=== PATIENT | male | born 2000 | race Caucasian/White ===

== ENCOUNTER 2023-04-18 15:55 | Emergency (ER) | payer BC ==
[2023-04-18] MEDS: LORazepam 1 MG TAB PO STA ×2 (16:49→16:51)
--- NOTE | 2023-04-18 16:49 | ED ---
General Adult HPI - General Chief complaint: Nausea/Vomiting/Diarrhea Stated complaint: Dizziness,nausea Time Seen by Provider: 04/18/23 16:11 Source: patient, RN notes reviewed Mode of arrival: EMS Limitations: no limitations - History of Present Illness Initial comments: 23-year-old male presents to the emergency department chief complaint of nausea and anxiety 2 hours. He states that he started feeling shaky. He states that he has felt like this in the past and has had to cover his head with a blanket to feel relief. Denies fever, chills, chest pain, shortness of breath. Denies SI, HI, hallucinations. - Related Data Home Medications Medication Instructions Recorded Confirmed No Known Home Medications 04/18/23 04/18/23 Allergies Allergy/AdvReac Type Severity Reaction Status Date / Time amoxicillin Allergy Rash/Hives Verified 04/18/23 16:08 Review of Systems ROS Statement: Those systems with pertinent positive or pertinent negative responses have been documented in the HPI. ROS Other: All systems not noted in ROS Statement are negative. Past Medical History Past Medical History: No Reported History History of Any Multi-Drug Resistant Organisms: None Reported Past Surgical History: No Surgical Hx Reported Past Psychological History: No Psychological Hx Reported Smoking Status: Current every day smoker Past Alcohol Use History: Daily Past Drug Use History: Marijuana General Exam Limitations: no limitations General appearance: alert, in no apparent distress, anxious Head exam: Present: atraumatic, normocephalic, normal inspection Eye exam: Present: normal appearance, PERRL, EOMI. Absent: scleral icterus, conjunctival injection, periorbital swelling ENT exam: Present: normal exam, mucous membranes moist Neck exam: Present: normal inspection. Absent: tenderness, meningismus, lymphadenopathy Respiratory exam: Present: normal lung sounds bilaterally. Absent: respiratory distress, wheezes, rales, rhonchi, stridor Cardiovascular Exam: Present: regular rate, normal rhythm, normal heart sounds. Absent: systolic murmur, diastolic murmur, rubs, gallop, clicks GI/Abdominal exam: Present: soft, normal bowel sounds. Absent: distended, tenderness, guarding, rebound, rigid Extremities exam: Present: normal inspection, full ROM, normal capillary refill. Absent: tenderness, pedal edema, joint swelling, calf tenderness Back exam: Present: normal inspection Neurological exam: Present: alert, oriented X3, CN II-XII intact Psychiatric exam: Present: normal affect, normal mood Skin exam: Present: warm, dry, intact, normal color. Absent: rash Course Vital Signs 04/18/23 04/18/23 16:05 18:34 Temperature 98.0 F 97.6 F Pulse Rate 73 83 Respiratory 18 16 Rate Blood Pressure 142/96 171/97 O2 Sat by Pulse 99 100 Oximetry Medical Decision Making - Medical Decision Making Was pt. sent in by a medical professional or institution (, [facility], [employer], urgent care, hospital, or fpc...) When possible be specific @ -No Did you speak to anyone other than the patient for history (EMS, parent, family, police, friend...)? What history was obtained from this source @ -No Did you review nursing and triage notes (agree or disagree)? Why? @ -I reviewed and agree with nursing and triage notes Were old charts reviewed (outside hosp., previous admission, EMS record, old EKG, old radiological studies, urgent care reports/EKG's, fpc records)? Report findings @ -No old charts were reviewed Differential Diagnosis (chest pain, altered mental status, abdominal pain women, abdominal pain men, vaginal bleeding, weakness, fever, dyspnea, syncope, headache, dizziness, GI bleed, back pain, seizure, CVA, palpatations, mental health, musculoskeletal)? @ -not applicable EKG interpreted by me (3pts min.). @ -EKG at 1623 showed sinus tachycardia, rate 100, ME 154, QRS 94 X-rays interpreted by me (1pt min.). @ -None done CT interpreted by me (1pt min.). @ -None done U/S interpreted by me (1pt. min.). @ -None done What testing was considered but not performed or refused? (CT, X-rays, U/S, labs)? Why? @ -None What meds were considered but not given or refused? Why? @ -None Did you discuss the management of the patient with other professionals (professionals i.e. [facility] Abreu, [employer], lab, RT, psych nurse, social sciences research scientist, parts consultant, teacher, affirmative action officer, community case manager)? Give summary @ -No Was smoking cessation discussed for >3mins.? @ -No Was critical care preformed (if so, how long)? @ -No Were there social determinants of health that impacted care today? How? (Homelessness, low income, unemployed, alcoholism, drug addiction, transportation, low edu. Level, literacy, decrease access to med. care, usp, rehab)? @ -No Was there de-escalation of care discussed even if they declined (Discuss DNR or withdrawal of care, Hospice)? DNR status @ -No What co-morbidities impacted this encounter? (DM, HTN, Smoking, COPD, CAD, Cancer, CVA, ARF, Chemo, Hep., AIDS, mental health diagnosis, sleep apnea, morbid obesity)? @ -None Was patient admitted / discharged? Hospital course, mention meds given and route, prescriptions, significant lab abnormalities, going to OR and other pertinent info. @ -Discharged. Patient presented to the emergency department for chief complaint of shaking, nausea, anxiety. CBC and CMP obtained and WNL. UDS negative. UA negative. EKG showed sinus tachycardia at 100. Patient was offered an ativan but declined. Patient covered his head with a blanket which he states helped. Upon reevaluation, patients symptoms had resolved. Return precautions discussed and patient expressed understanding. Patient stable at time of discharge. Case discussed with my attending, Dr. Hu.. Undiagnosed new problem with uncertain prognosis? @ -No Drug Therapy requiring intensive monitoring for toxicity (Heparin, Nitro, Insulin, Cardizem)? @ -No Were any procedures done? @ -No Diagnosis/symptom? @ -anxiety Acute, or Chronic, or Acute on Chronic? @ -acute Uncomplicated (without systemic symptoms) or Complicated (systemic symptoms)? @ -uncomplicated Side effects of treatment? @ -No Exacerbation, Progression, or Severe Exacerbation? @ -No Poses a threat to life or bodily function? How? (Chest pain, USA, NH, pneumonia, PE, COPD, DKA, ARF, appy, cholecystitis, CVA, Diverticulitis, Homicidal, Suicidal, threat to staff... and all critical care pts) @ -No - Lab Data Result diagrams: 04/18/23 16:45 04/18/23 16:45 Lab Results 04/18/23 04/18/23 04/18/23 Range/Units 16:45 16:45 16:45 WBC 6.2 (3.8-10.6) k/uL RBC 5.09 (4.30-5.90) m/uL Hgb 16.8 (13.0-17.5) gm/dL Hct 47.7 (39.0-53.0) % MCV 93.7 (80.0-100.0) fL MCH 32.9 (25.0-35.0) pg MCHC 35.1 (31.0-37.0) g/dL RDW 12.4 (11.5-15.5) % Plt Count 274 (150-450) k/uL MPV 7.6 Neutrophils % 53 % Lymphocytes % 33 % Monocytes % 9 % Eosinophils % 3 % Basophils % 1 % Neutrophils # 3.3 (1.3-7.7) k/uL Lymphocytes # 2.0 (1.0-4.8) k/uL Monocytes # 0.5 (0-1.0) k/uL Eosinophils # 0.2 (0-0.7) k/uL Basophils # 0.0 (0-0.2) k/uL Sodium 138 (137-145) mmol/L Potassium 4.5 (3.5-5.1) mmol/L Chloride 103 (98-107) mmol/L Carbon Dioxide 24 (22-30) mmol/L Anion Gap 11 mmol/L BUN 14 (9-20) mg/dL Creatinine 0.99 (0.66-1.25) mg/dL Est GFR (CKD-EPI)AfAm >90 (>60 ml/min/1.73 sqM) Est GFR (CKD-EPI)NonAf >90 (>60 ml/min/1.73 sqM) Glucose 89 (74-99) mg/dL Calcium 10.0 (8.4-10.2) mg/dL Total Bilirubin 0.5 (0.2-1.3) mg/dL AST 47 (17-59) U/L ALT 54 H (4-49) U/L Alkaline Phosphatase 70 (38-126) U/L Total Protein 7.9 (6.3-8.2) g/dL Albumin 5.0 (3.5-5.0) g/dL Urine Color Light Yellow Urine Appearance Clear (Clear) Urine pH 7.0 (5.0-8.0) Ur Specific [place] 1.007 (1.001-1.035) Urine Protein Negative (Negative) Urine Glucose (UA) Negative (Negative) Urine Ketones Negative (Negative) Urine Blood Negative (Negative) Urine Nitrite Negative (Negative) Urine Bilirubin Negative (Negative) Urine Urobilinogen <2.0 (<2.0) mg/dL Ur Leukocyte Esterase Negative (Negative) Urine Opiates Screen Not Detected (NotDetected) Ur Oxycodone Screen Not Detected (NotDetected) Urine Methadone Screen Not Detected (NotDetected) Ur Propoxyphene Screen Not Detected (NotDetected) Ur Barbiturates Screen Not Detected (NotDetected) U Tricyclic Antidepress Not Detected (NotDetected) Ur Phencyclidine Scrn Not Detected (NotDetected) Ur Amphetamines Screen Not Detected (NotDetected) U Methamphetamines Scrn Not Detected (NotDetected) U Benzodiazepines Scrn Not Detected (NotDetected) Urine Cocaine Screen Not Detected (NotDetected) U Marijuana (THC) Screen Not Detected (NotDetected) Disposition Clinical Impression: Nausea Disposition: HOME SELF-CARE Condition: Stable Instructions (If sedation given, give patient instructions): Acute Nausea and Vomiting (ED) Additional Instructions: Please return to the emergency department for new or worsening symptoms. Is patient prescribed a controlled substance at d/c from ED?: No Referrals: None,Stated [Primary Care Provider] - 1-2 days Forms: [facility] Time of Disposition: 18:25
[2023-04-18 17:00] LABS: Basophils % (A) 1 %; Eosinophils # (A) 0.2 k/uL (0-0.7); Eosinophils % (A) 3 %; HCT 47.7 % (39.0-53.0); HGB 16.8 gm/dL (13.0-17.5); Lymphocytes % (A) 33 %; MCH 32.9 pg (25.0-35.0); MCHC 35.1 g/dL (31.0-37.0); MCV 93.7 fL (80.0-100.0); Mean Platelet Volume 7.6; Monocytes # (A) 0.5 k/uL (0-1.0); Monocytes % (A) 9 %; Neutrophils # (A) 3.3 k/uL (1.3-7.7); Neutrophils % (A) 53 %; Platelet Count 274 k/uL (150-450); RBC 5.09 m/uL (4.30-5.90); RDW 12.4 % (11.5-15.5); WBC 6.2 k/uL (3.8-10.6)
[2023-04-18 17:16] LABS: ALT 54 U/L (4-49); AST 47 U/L (17-59); African American GFR (CKD) >90 (>60 ml/min/1.73 sqM); Alkaline Phosphatase 70 U/L (38-126); Anion Gap 11 mmol/L; Blood Urea Nitrogen 14 mg/dL (9-20); Carbon Dioxide 24 mmol/L (22-30); Chloride 103 mmol/L (98-107); Glucose 89 mg/dL (74-99); Non-African American GFR(CKD) >90 (>60 ml/min/1.73 sqM); Potassium 4.5 mmol/L (3.5-5.1); Sodium 138 mmol/L (137-145); Total Bilirubin 0.5 mg/dL (0.2-1.3); Total Protein 7.9 g/dL (6.3-8.2)
[2023-04-18 18:00] LABS: Appearance,Urine Clear (Clear); Bilirubin,Urine Negative (Negative); Blood,Urine Negative (Negative); Color,Urine Light Yellow; Glucose,Urine (UA) Negative (Negative); Ketones,Urine Negative (Negative); Leukocyte Esterase,Urine Negative (Negative); Nitrite,Urine Negative (Negative); Protein,Urine Negative (Negative); Specific Gravity,Urine 1.007 (1.001-1.035); Urobilinogen,Urine <2.0 mg/dL (<2.0)
[2023-04-18 18:12] LABS: Amphetamine Screen,Urine Not Detected (NotDetected); Barbiturate Screen,Urine Not Detected (NotDetected); Benzodiazepines Screen,Urine Not Detected (NotDetected); Cocaine Screen,Urine Not Detected (NotDetected); Methadone Screen, Urine Not Detected (NotDetected); Opiate Screen,Urine Not Detected (NotDetected); Oxycodone Screen, Urine Not Detected (NotDetected); Phencyclidine Screen,Urine Not Detected (NotDetected); Tricyclic Antidepressant,Urine Not Detected (NotDetected); Urn Cannabinoid Scrn Not Detected (NotDetected)
[2023-04-18 18:35] VITALS: BP 171/97; PULSE 83; RESP 16; TEMP 97.6
== END 2023-04-18 18:35 | disposition home or self-care (01) ==
LOC: EC 15:55
DX: R11.2 Nausea with vomiting, unspecified (principal); F17.200 Nicotine dependence, unspecified, uncomplicated; F12.90 Cannabis use, unspecified, uncomplicated; Z88.0 Allergy status to penicillin
CPT/HCPCS: 36415; 80053; 80306; 81003; 85025; 93005; 99284

== ENCOUNTER → 2025-04-13 | Outpatient (CLI) | payer BC ==
[2025-04-14 06:02] LABS: HCT 50.3 % (39.6-50.0); MCH 31.4 pg (27.0-32.0); MCHC 33.8 g/dL (32.0-37.0); Platelet Count 311 X 10*3/uL (140-440); RBC 5.41 X 10*6/uL (4.40-5.60); RDW 12.4 % (11.5-14.5); WBC 5.52 X 10*3/uL (4.50-10.00)
[2025-04-14 06:03] LABS: Basophils # (A) 0.07 X 10*3/uL (0.00-0.10); Basophils % (A) 1.3 %; Eosinophils # (A) 0.18 X 10*3/uL (0.04-0.35); Eosinophils % (A) 3.3 %; Lymphocytes # (A) 1.32 X 10*3/uL (0.90-5.00); Lymphocytes % (A) 23.9 %; Mean Platelet Volume 9.5 FL (9.5-12.2); Monocytes # (A) 0.83 X 10*3/uL (0.20-1.00); NRBC Per 100 WBC 0 X 10*3/uL (0.00-0.01); Neutrophils # (A) 3.09 X 10*3/uL (1.80-7.70)
== END | disposition home or self-care (01) ==
LOC: LABWHC1 11:37
PROVIDERS: ATTEND General Practice
DX: I10 Essential (primary) hypertension (principal)
CPT/HCPCS: 36415; 85025